=== PATIENT | female | born 1995 | race African-American/Black ===

== ENCOUNTER → 2021-03-17 | Emergency (ER) | payer BC ==
[~2021-03-17] VITALS: Ht 170.2 cm; Wt 142.9 kg
[~2021-03-17] MED LIST: ALLEGRA ALLERG180 MG PO; BC POWDER PACK1 EAC1; FLONASE16 GM INH; IBUPROFEN 800800 MG PO
--- NOTE | ~2021-03-17 | EMS ---
[facility] [address] [place] [address] EMS Patient Care Report Name: BEATA PHILLIPS Room #: REG DAHLIA Connell#: [id number] Admission: 03/17/21 Attend Phys: Discharge: Date of : [birth year] Report #: [id number] THIS REPORT FOR: //name// Report Transmitted: 03/17/2021 22:46 EMS Care Summary [facility] MED-ACT Incident [id number] @ 03/17/2021 21:01 Incident Location [address] [place] [address] Patient BEATA PHILLIPS Female, 25 Years 1995 Patient Address [address] [place] [id number] Patient History Novel Coronavirus (COVID-19), Patient Allergies No known allergies, Patient Medications None Reported, Chief Complaint Shortness of breath Disposition Transported No Lights/[place] Dispatch Reason Breathing Problem Transported To [facility] Narrative At 21:01, [id number] was dispatched by 911 to the [facility], [address], for a C1 difficulty breathing. S-47 was also dispatched. PT was a 25 yr old female who was working when she experienced a sudden onset [facility] [address] [place] [address] EMS Patient Care Report Name: BEATA PHILLIPS Room #: REG ER Becki#: [id number] Admission: 03/17/21 Attend Phys: Discharge: Date of : [birth year] Report #: [id number] of shortness of breath and lightheadedness. PT reported that she could not slow her breathing down and that she was losing feeling in her fingers and toes. We arrived to find the PT sitting on a bench in obvious distress, being coached by [facility] crew. PT's mother was on speakerphone and was able to tell us that she had never had an episode like this before and that she did not have a history of COPD or anxiety attacks. Hands and feet were spasming. PT eventually was able to slow down her breathing enough to speak a few words. She said that this event came on suddenly and without provocation. She had no idea what caused it. PT denied any pain, nausea, or syncope. VS, ECG, and 12-leads as listed. Radio report to [place]. Transfer of care to triage. Initial Vitals @21:35P: 97,EtCO2: 17,SpO2: 100,[place] Suspected: false @21:19P: 110,EtCO2: 0,SpO2: 100,TN Suspected: false @21:33P: 89,R: 21,EtCO2: 17,SpO2: 99,TN Suspected: false @21:14P: 119,R: 40,BP: 118/65,Pain: 0/10,GCS: 15,SpO2: 99,Revised Trauma: 11, @21:43P: 85,R: 30,BP: 114/73,GCS: 15,EtCO2: 17,SpO2: 88,Revised Trauma: 11, @21:24P: 109,R: 25,BP: 110/72,GCS: 15,Temp: 98.2F,Glucose: 75,EtCO2: 13,SpO2: 100,Revised Trauma: 12, Impression Acute Respiratory Distress (Dyspnea) Procedures @21:3312-Lead ECGResponse: UnchangedSucceeded Timeline 21:00,Call Received 21:00,Psap Call 21:01,Dispatched 21:03,En Route 21:07,On Scene 21:13,At Patient 21:14,BP: 118/65 M,PULSE: 119,RR: 40 R,SPO2: 99 Ox,ETCO2: ,BG: ,PAIN: 0,GCS: 15, 21:19,BP: / M,PULSE: 110,RR: R,SPO2: 100 Ox,ETCO2: 0 ,BG: ,PAIN: ,GCS: , 21:24,BP: 110/72 M,PULSE: 109,RR: 25 R,SPO2: 100 Ox,ETCO2: 13 ,B,PAIN: ,GCS: 15, 21:33,12-Lead ECG,Response: UnchangedSucceeded, 21:33,BP: / M,PULSE: 89,RR: 21 R,SPO2: 99 Ox,ETCO2: 17 ,BG: ,PAIN: ,GCS: , 21:35,BP: / M,PULSE: 97,RR: R,SPO2: 100 Ox,ETCO2: 17 ,BG: ,PAIN: ,GCS: , 21:36,Depart Scene 21:43,BP: 114/73 M,PULSE: 85,RR: 30 R,SPO2: 88 Ox,ETCO2: 17 ,BG: ,PAIN: ,GCS: 15, [address] [place] [address] EMS Patient Care Report Name: BEATA PHILLIPS Room #: REG M.R.#: [id number] Admission: 03/17/21 Attend Phys: Discharge: Date of : [birth year] Report #: [id number] 21:44,At Destination 22:07,Call Closed Disclaimer v1.1 Copyright 2020 [employer] This EMS Care Summary contains data elements from the applicable legal record (which may be displayed differently). It is designed to provide pertinent information for the following purposes: continuity of care, clinical quality, and state data reporting. The complete legal record is available to ED staff and administrators of the receiving hospital in [facility]'s Patient Tracker. All data is provided "as is."
[2021-03-17 23:24] LABS: ABSOLUTE NEUTROPHILS 7.9 thou/uL (1.4-8.2); BASOPHILS 0.5 % (0.0-2.0); EOSINOPHILS 0.1 % (0.0-3.0); HEMATOCRIT 37.2 % (37.0-47.0); HEMOGLOBIN 11.7 gm/dL (12.0-15.0); LYMPHOCYTES 11.8 % (24.0-44.0); MCHC 31.5 g/dL (28.0-37.0); MCV 82.4 fL (80.0-100.0); MONOCYTES 11.9 % (1.0-8.0); PLATELET COUNT 358 thou/uL (150-400); POLYS 75.7 % (36.0-66.0); RBC 4.51 mil/uL (4.20-5.00); RDW 15.5 % (10.5-14.5); WBC 10.4 thou/uL (4.0-11.0)
[2021-03-17 23:33] LABS: CALCIUM 8.8 mg/dL (8.5-10.1); CREATININE 0.8 mg/dL (0.6-1.0)
[2021-03-17 23:44] LABS: POTASSIUM 2.9 mmol/L (3.5-5.1)
[2021-03-18 00:45] VITALS: BP 134/79
--- NOTE | 2021-03-18 09:32 | EKG ---
[place] [address] [facility] [address] [place] [address] ELECTROCARDIOGRAM REPORT Name: BEATA PHILLIPS Room #: REG Becki#: [id number] Admission: 03/17/21 Attend Phys: Discharge: Date of : [birth year] Report #: [id number] [facility] ED Test Date: 2021-03-17 Test Time: 22:56:41 Pat Name: BEATA PHILLIPS Department: Room: Gender: F Log Buyer: VÍCTOR : 1995 Requested By: Juan Carlos Gould Order Number: [id number] MD: Marshall Hickey Measurements Intervals [place] Rate: 93 P: 13 KS: 169 QRS: 7 QRSD: 98 T: -2 QT: 342 QTc: 426 Interpretive Statements Sinus rhythm Nonspecific T abnormalities, anterior leads Baseline wander in lead(s) V6 No previous ECG available for comparison Electronically Signed On 03-18-2021 9:31:48 CDT by Marshall Hickey [email or web address] <ELECTRONICALLY SIGNED> By: Marshall Hickey MD, [facility] 03/18/21 0931 [id number] Marshall Hickey MD, FACC /EPI
== END ==
LOC: ER 21:50
PROVIDERS: Emergency Medicine
DX: E87.6 Hypokalemia (principal)

== ENCOUNTER 2021-04-24 19:24 | Emergency (ER) | payer BC ==
[~2021-04-24] VITALS: Ht 170.2 cm; Wt 102.1 kg
--- NOTE | ~2021-04-24 | EMS ---
[address] [address] EMS Patient Care Report Name: BEATA PHILLIPS Room #: REG DAHLIA Connell#: [id number] Admission: 04/24/21 Attend Phys: Discharge: Date of : [birth year] Report #: [id number] THIS REPORT FOR: //name// Report Transmitted: 04/24/2021 19:13 EMS Care Summary [facility] Incident [id number] @ 04/24/2021 18:43 Incident Location [address] [place] [address] Patient BEATA PHILLIPS Female, 25 Years 1995 Patient Address [address] [place] [address] Patient History None Reported, Patient Allergies No known allergies, Patient Medications None Reported, Chief Complaint LUQ abd pain Disposition Transported No Lights/[place] Dispatch Reason Abdominal Pain/Problems Transported To [facility] Narrative AOS to 25yo F. AOx4. Found in private res. [employer] crew arrived on scene wearing appropriate PPE and placed Pt in Face mask per SOP. C/O LUQ Abd pain since 12 noon today. 8/10 sharp non radiating Abd pain. Negative Chest pain. Negative SOB. Negative N/V. Negative head, neck or back pain. Good PMSC in all [address] [address] EMS Patient Care Report Name: BEATA PHILLIPS [facility] #: [facility] [id number] Admission: 04/24/21 Attend Phys: Discharge: Date of : [birth year] Report #: [id number] limbs. Clear lung sounds bi-lat. PERRL. 12 lead shows no acute change. Blood glucose WNL. Pt moved to [facility] without incident. Medic Queta obtained IV access and admin fentanyl and zofran with positive effect. Pt vitals monitored during transport. Pt transported to ER in POC without incident. Squad 51 returned to service. All times approx. RPF. Initial Vitals @18:58P: 71,SpO2: 82,[place] Suspected: false @18:57P: 68,BP: 142/77,SpO2: 87, @18:59MI Suspected: false @19:09P: 60,R: 20,BP: 144/78,Pain: 4/10,SpO2: 99, @19:16P: 53,R: 20,BP: 137/83,Pain: 4/10,GCS: 15,SpO2: 100,Revised Trauma: 12, @18:51P: 74,R: 18,BP: 147/98,Pain: 8/10,GCS: 15,Glucose: 98,SpO2: 100,Revised Trauma: 12, Impression Abdominal Pain Procedures @18:55 ALS AssessmentSucceeded @19:03 IV Therapy - Normal Saline (.9% NaCl) 200cc (20 ga) Site: Antecubital-Right Response: ImprovedSucceeded @19:06 Fentanyl - 50 Micrograms (mcg) - Intravenous (IV) Response: Improved @19:08 Ondansetron - 4 Milligrams (mg) - Buccal Response: Improved @18:59 12-Lead ECG Timeline 18:41,Call Received 18:41,Psap Call 18:43,Dispatched 18:46,En Route 18:48,Initial Responder On Scene 18:48,On Scene 18:49,At Patient 18:51,BP: 147/98 M,PULSE: 74,RR: 18 R,SPO2: 100 Ox,ETCO2: ,B,PAIN: 8,GCS: 15, 18:55,ALS Assessment,Succeeded, 18:57,BP: 142/77 M,PULSE: 68,RR: R,SPO2: 87 Ox,ETCO2: ,BG: ,PAIN: ,GCS: , 18:58,BP: / M,PULSE: 71,RR: R,SPO2: 82 Ox,ETCO2: ,BG: ,PAIN: ,GCS: , 18:59,12-Lead ECG, 18:59,BP: / M,PULSE: ,RR: R,SPO2: Ox,ETCO2: ,BG: ,PAIN: ,GCS: , 19:02,Depart Scene 19:03,IV Therapy - Normal Saline (.9% NaCl) 200cc 20 ga Site: Antecubital-Right,Response: ImprovedSucceeded, [facility] [address] [place] [address] EMS Patient Care Report Name: BEATA PHILLIPS Room #: REG Becki#: [id number] Admission: 04/24/21 Attend Phys: Discharge: Date of : [birth year] Report #: [id number] 19:06,Fentanyl - 50 Micrograms (mcg) - Intravenous (IV),Response: Improved 19:08,Ondansetron - 4 Milligrams (mg) - Buccal,Response: Improved 19:09,BP: 144/78 M,PULSE: 60,RR: 20 R,SPO2: 99 Ox,ETCO2: ,BG: ,PAIN: 4,GCS: , 19:16,BP: 137/83 M,PULSE: 53,RR: 20 R,SPO2: 100 Ox,ETCO2: ,BG: ,PAIN: 4,GCS: 15, 19:20,At Destination 19:31,Call Closed Disclaimer v1.1 Copyright 2020 [employer] This EMS Care Summary contains data elements from the applicable legal record (which may be displayed differently). It is designed to provide pertinent information for the following purposes: continuity of care, clinical quality, and state data reporting. The complete legal record is available to ED staff and administrators of the receiving hospital in [employer]'s Patient Tracker. All data is provided "as is."
[2021-04-24 20:05] LABS: ABSOLUTE NEUTROPHILS 1.8 thou/uL (1.4-8.2); HEMOGLOBIN 10.3 gm/dL (12.0-15.0); MCH 26.5 pg (26.0-34.0); RBC 3.88 mil/uL (4.20-5.00)
[2021-04-24 20:06] LABS: BASOPHILS 0.4 % (0.0-2.0); CALCIUM 8.1 mg/dL (8.5-10.1); CREATININE 0.6 mg/dL (0.6-1.0); EOSINOPHILS 1.3 % (0.0-3.0); HEMATOCRIT 32.3 % (37.0-47.0); LYMPHOCYTES 54.3 % (24.0-44.0); MCHC 31.9 g/dL (28.0-37.0); MCV 83.1 fL (80.0-100.0); MONOCYTES 10.9 % (1.0-8.0); PLATELET COUNT 314 thou/uL (150-400); POLYS 33.1 % (36.0-66.0); POTASSIUM 3.5 mmol/L (3.5-5.1); RDW 15.6 % (10.5-14.5); WBC 5.3 thou/uL (4.0-11.0)
[2021-04-24 20:12] LABS: ALBUMIN 2.8 g/dL (3.4-5.0); TOTAL BILIRUBIN 0.2 mg/dL (0.2-1.0); TOTAL PROTEIN 7.1 g/dL (6.4-8.2)
[2021-04-24 21:15] LABS: URINE BILIRUBIN NEGATIVE (Negative); URINE BLOOD NEGATIVE (Negative); URINE CLARITY CLEAR; URINE COLOR YELLOW; URINE GLUCOSE-RANDOM* NEGATIVE (Negative); URINE KETONES 3+ (Negative); URINE LEUKOCYTES-REFLEX TRACE (Negative); URINE NITRITE-REFLEX NEGATIVE (Negative); URINE PROTEIN (DIPSTICK) NEGATIVE (Negative); URINE SPECIFIC GRAVITY 1.025 (1.005-1.035); URINE UROBILINOGEN 0.2 E.U./dl (0.2-1.0)
[2021-04-24] MEDS ORDERED: NORCO5 PO (22:30)
[2021-04-24] MEDS ORDERED: ZOFRAN ODT4 MG PO (22:31)
[2021-04-24 22:38] VITALS: BP 124/71
--- NOTE | 2021-04-25 08:02 | EKG ---
[place] [address] [facility] [place] [address] ELECTROCARDIOGRAM REPORT Name: BEATA PHILLIPS [facility] [id number] Admission: 04/24/21 Attend Phys: Discharge: 04/24/21 Date of : [birth year] Report #: [id number] [facility] ED Test Date: 2021-04-24 Test Time: 19:42:28 Pat Name: BEATA PHILLIPS Department: Room: Gender: F Workforce Development Specialist: SHERRI : 1995 Requested By: Jesus Mendieta Order Number: [id number] MD: Marshall Hickey Measurements Intervals [place] Rate: 49 P: 46 OR: 163 QRS: 64 QRSD: 91 T: 51 QT: 420 QTc: 380 Interpretive Statements Sinus bradycardia Baseline wander in lead(s) V3 Compared to ECG 03/17/2021 22:56:41 T-wave abnormality no longer present Electronically Signed On 04-25-2021 8:02:27 MACHINE BURRER by Marshall Hickey [email or web address] <ELECTRONICALLY SIGNED> By: Marshall Hickey MD, [facility] 04/25/21801 41 41 Marshall Hickey MD, FACC /EPI
== END 2021-04-24 22:44 | disposition home or self-care (01) ==
LOC: ER 19:24
PROVIDERS: Emergency Medicine
DX: R10.13 Epigastric pain (principal); F12.90 Cannabis use, unspecified, uncomplicated; Z98.890 Other specified postprocedural states